=== PATIENT | female | born 1995 | race Two or more races ===

== ENCOUNTER 2019-02-21 23:28 | Emergency (ER) | payer OTHER ==
[~2019-02-21] VITALS: Ht 160 cm; Wt 64.9 kg
[2019-02-22] MEDS ORDERED: KETO10TA2 PO (04:30)
[2019-02-22] MEDS ORDERED: CIPRO500 MG PO (04:30)
[2019-02-22] MEDS ORDERED: TAMS0.4C PO (04:30)
== END 2019-02-22 04:47 | disposition home or self-care (01) ==
LOC: ER 23:28
DX: N20.9 Urinary calculus, unspecified (principal)

== ENCOUNTER 2019-04-17 14:46 | Emergency (ER) | payer OTHER ==
[~2019-04-17] VITALS: Ht 160 cm; Wt 59.0 kg
[~2019-04-17 14:46] MED LIST: CIPRO500 MG PO; KETO10TA2 PO; TAMS0.4C PO
[2019-04-17] MEDS ORDERED: MUCINEX DM ER1 EAC1 PO (18:16)
[2019-04-17] MEDS ORDERED: KETO10TA2 PO (18:16)
[2019-04-17] MEDS ORDERED: OSEL75CA PO (18:16)
[2019-04-17] MEDS ORDERED: AIRBORNE EFFER1 EACH PO (18:16)
== END 2019-04-17 19:42 | disposition home or self-care (01) ==
LOC: ER 14:46
DX: J11.1 Influenza due to unidentified influenza virus with other respiratory manifestations (principal)

== ENCOUNTER 2019-04-19 10:14 | Emergency (ER) | payer OTHER ==
[~2019-04-19] VITALS: Ht 160 cm; Wt 59.0 kg
[~2019-04-19 10:14] MED LIST changes: +AIRBORNE EFFER1 EACH PO; +MUCINEX DM ER1 EAC1 PO; +OSEL75CA PO
== END 2019-04-19 14:28 | disposition home or self-care (01) ==
LOC: ER 10:14
DX: J11.1 Influenza due to unidentified influenza virus with other respiratory manifestations (principal)

== ENCOUNTER 2020-09-23 02:13 | Emergency (ER) | payer OTHER ==
[~2020-09-23] VITALS: Ht 160 cm; Wt 70.3 kg
[2020-09-23] MEDS ORDERED: ORPHENADRINE C100 MG PO (06:16)
[2020-09-23] MEDS ORDERED: KETO10TA2 PO (06:16)
== END 2020-09-23 06:38 | disposition home or self-care (01) ==
LOC: ER 02:13
DX: S30.0XXA Contusion of lower back and pelvis, initial encounter (principal); S00.83XA Contusion of other part of head, initial encounter; W18.39XA Other fall on same level, initial encounter; Y93.89 Activity, other specified; Y92.098 Other place in other non-institutional residence as the place of occurrence of the external cause; Y99.8 Other external cause status

== ENCOUNTER 2021-07-21 11:05 | Emergency (ER) | payer OTHER ==
[~2021-07-21] VITALS: Ht 160 cm; Wt 68.0 kg
[~2021-07-21 11:05] MED LIST changes: +ACETAMINOPHEN650 M2; +ORPHENADRINE C100 MG PO
== END 2021-07-21 17:47 | disposition home or self-care (01) ==
LOC: ER 11:05
DX: N39.0 Urinary tract infection, site not specified (principal)

== ENCOUNTER 2023-01-27 19:41 | Emergency (ER) | payer OTHER ==
[~2023-01-27] VITALS: Ht 160 cm; Wt 77.1 kg
== END 2023-01-28 01:07 | disposition home or self-care (01) ==
LOC: ER 19:41
DX: S19.89XA Other specified injuries of other specified part of neck, initial encounter (principal); S39.82XA Other specified injuries of lower back, initial encounter; S09.8XXA Other specified injuries of head, initial encounter; W19.XXXA Unspecified fall, initial encounter; Y93.89 Activity, other specified; Y92.89 Other specified places as the place of occurrence of the external cause; M54.2 Cervicalgia; M54.89 Other dorsalgia